=== PATIENT | male | born 1965 | race African-American/Black ===

== ENCOUNTER 2018-07-02 20:56 | Inpatient (IN) | payer BC ==
--- NOTE | 2018-07-02 21:27 | RAD ---
Radiograph chest one view: HISTORY: 53-year-old male with chest pain FINDINGS: The visualized lung harris are clear. The cardiomediastinal silhouette is normal. No pneumothorax. Th e lateral costophrenic angles are sharp. IMPRESSION: No acute cardiopulmonary findings.
[2018-07-02 21:59] LABS: #Basophils 0.1 thou/uL (0.0-0.2); #Eosinphils 0.2 thou/uL (0.0-0.7); #Lymphocytes 2.7 thou/uL (1.20-3.40); #Monocytes 0.6 thou/uL (0.11-0.59); %Basophils 0.8 % (0.0-1.0); %Eosinophils 2.2 % (0.0-10.0); %Lymphocytes 35.5 % (21.0-51.0); %Monocytes 8.3 % (0.0-10.0); %Neutrophils 53.2 % (42.0-75.0); Hemoglobin 14.1 g/dL (14.0-18.0); Mean Corpuscular HGB CONC 33.6 g/dL (32.0-36.0); Mean Corpuscular Hemoglobin 31.4 pg (27.0-31.0); Mean Corpuscular Volume 93.5 fL (78.0-98.0); Platelet Count 290 thou/uL (130-400); RBC Distribution Width 13.2 % (11.5-14.5); Red Blood Cell (RBC) Count 4.49 mill/uL (4.70-6.10); White Blood Cell (WBC) Count 7.5 thou/uL (4.8-10.8)
[2018-07-02 22:16] LABS: ALT (SGPT) 16 U/L (8-55); AST (SGOT) 16 U/L (5-34); Alkaline Phosphatase 53 U/L (40-150); Anion Gap 12 mmol/L (10-20); BUN (Urea Nitrogen) 10 mg/dL (8.4-25.7); Bilirubin, Total 0.6 mg/dL (0.2-1.2); CK (CPK) 189 U/L (30-200); Calc. Creatinine Clearance 0 mL/min (70-130); Calcium 9.2 mg/dL (7.8-10.44); Carbon Dioxide 25 mmol/L (22-29); Chloride 105 mmol/L (98-107); Estimated GFR-MDRD 75; Glucose 100 mg/dL (70-105); Lipase 13 U/L (8-78); Sodium 138 mmol/L (136-145)
[2018-07-02] MEDS ORDERED: Aspirin Chewable 81 MG TAB ONE (22:20)
[2018-07-02] MEDS ORDERED: Nitroglycerin 2% Ointment 1 INCH/1 GM Packet ONE (23:09)
[2018-07-03 01:55] LABS: CKMB 8.1 ng/mL (0-6.6)
[2018-07-03 05:02] LABS: Troponin I 0.709 ng/mL (< 0.028)
[2018-07-03 08:07] LABS: Troponin I 1.394 ng/mL (< 0.028)
[2018-07-03] MEDS ORDERED: Ondansetron PF 4 MG/2 ML Vial IVP PRN (09:17)
[2018-07-03] MEDS ORDERED: Nitroglycerin 0.4 MG TAB (25 Tab Bottle) SL PRN (09:17)
[2018-07-03] MEDS ORDERED: Acetaminophen 325 MG TAB PO PRN (09:17)
[2018-07-03] MEDS ORDERED: Bisacodyl 5 MG TAB PO PRN (09:17)
[2018-07-03] MEDS ORDERED: Enoxaparin Sodium 40 MG/0.4 ML SYRINGE SC SCH (09:30)
[2018-07-03] MEDS ORDERED: Morphine 4 MG/ML VIAL SLOW IVP PRN (10:57)
[2018-07-03] MEDS ORDERED: Enoxaparin Sodium 100 MG/ML SYRINGE SC SCH ×2 (11:00→21:00)
[2018-07-03] MEDS ORDERED: Enoxaparin Sodium 30 MG/0.3 ML SYRINGE SC SCH ×2 (11:00→21:00)
[2018-07-03] MEDS ORDERED: Enoxaparin Sodium 30 MG/0.3 ML SYRINGE ONE (12:35)
[2018-07-03] MEDS ORDERED: Enoxaparin Sodium 100 MG/ML SYRINGE ONE (12:35)
[2018-07-03 16:07] VITALS: BMI 37.5
--- NOTE | 2018-07-03 16:20 | HP ---
PRIMARY CARE PROVIDER: Tori Jordan MD CHIEF COMPLAINT: Chest pain. HISTORY OF PRESENT ILLNESS: Mr. García is a pleasant 53-year-old gentleman, who was seen at [facility] on July 03, 2018. He reports that he was on a blood pressure medication in the past, possibly amlodipine. A few days ago, he has been started on olmesartan. He also takes atorvastatin. He was sitting in his chair at work yesterday around 7:30 p.m. He leaned forward to get water from refrigerator, which was located below the desk. He started having chest pressure while he was leaning forward. The pressure continued even when he sat up. He reports that it was all over his chest, radiating down both arms, 7 to 8/10 at its worst. He got up to walk out of the building. At that time, he had a bitter taste in his mouth and felt nauseous. He walked about 25 yards and vomited several times before he reached his vehicle. He felt better when he went home. After going home, he fed his dogs and went to [employer] to get two 5-gallon water tanks filled. He carried the filled water tanks in his truck. At that time, he felt worse and started vomiting again. He continued to have the chest discomfort. He denies any shortness of breath or diaphoresis. He reports that the chest discomfort was constant and worse with exertion. It was relieved after he came to the emergency room and received medications in the emergency room. REVIEW OF SYSTEMS: All other systems reviewed and found to be negative. PAST MEDICAL HISTORY: Benign prostate hypertrophy, hypertension, and prostate cancer. SURGICAL HISTORY: Prostatectomy, transurethral resection of prostate, knee scopes, hernia repair, nasal septal surgery, and hydrocele. SOCIAL HISTORY: The patient denies tobacco use, alcohol use, or recreational drug use. FAMILY HISTORY: Significant for myocardial infarction in his paternal grandfather. ALLERGIES: PENICILLIN. CURRENT MEDICATIONS: 1. Olmesartan 5 mg daily. 2. Atorvastatin 20 mg at bedtime. PHYSICAL EXAMINATION: GENERAL: On examination, Mr. García is awake and alert, not in acute distress. VITAL SIGNS: Blood pressure is 134/89, pulse 74, respiratory rate 20, and oxygen saturation 99% on room air. He is afebrile. EYES: No scleral icterus, no conjunctival pallor. ENT: Moist mucosal membranes. No oropharyngeal erythema or exudates. NECK: Supple, nontender, trachea is midline. RESPIRATORY: Accessory muscles of breathing are not active. Chest wall movements are symmetric bilaterally. LUNGS: Clear to auscultation without wheeze, rhonchi, or crepitations. CARDIOVASCULAR: S1 and S2 are heard, regular. Peripheral pulses palpable. No carotid bruit. No pericardial rub. ABDOMEN: Soft, nontender, bowel sounds heard, no hepatomegaly, no splenomegaly. NEUROLOGIC: Cranial nerves 2 through 12 intact, deep tendon reflexes 2+. MUSCULOSKELETAL: Power is 5/5 in all 4 extremities. SKIN: No rashes or subcutaneous nodules. LYMPHATIC: No cervical lymphadenopathy. PSYCHIATRIC: Normal mood, normal affect, the patient is oriented to person, place, and time. LABORATORY DATA: Mr. García's labs and investigations were reviewed. I reviewed his electrocardiogram, which shows normal sinus rhythm, no ST changes to suggest an acute coronary syndrome. I also reviewed his chest x-ray, which does not show any pulmonary infiltrates. He has an unremarkable CBC and normal comprehensive metabolic profile. Troponin I was initially negative, but has trended up to 1.394. ASSESSMENT AND PLAN: Mr. Ricky Garza is a pleasant 53-year-old gentleman, who was seen at [facility] on July 03, 2018. His problem list includes: 1. Chest pain: Most likely secondary to wnl-QH-radiwkxzh myocardial infarction, given the trending troponins and his past medical history of hypertension and dyslipidemia. He denies any recent travel. We will order D-dimer to rule out pulmonary embolism, given the diffuse nature of his chest pain. 2. Til-UL-litbfeyqf myocardial infarction: He has already received aspirin. I will continue him on aspirin and start him on Lovenox. We will check 2D echocardiogram. We will monitor on telemetry and consult Cardiology Service for opinion and help with management. 3. Hypertension: We will continue him on olmesartan. We will monitor vital signs and titrate antihypertensives as needed. 4. Dyslipidemia: We will increase atorvastatin to 40 mg daily. Many thanks for allowing me to participate in your patient's care. Please feel free to contact me with any questions or concerns. LEVEL OF RISK: High. LEVEL OF COMPLEXITY: High. Job ID: [id number]
[2018-07-03] MEDS ORDERED: Communication Order-Pharmacy FS SCH (16:30)
[2018-07-03 17:42] LABS: Troponin I 12.712 ng/mL (< 0.028)
[2018-07-03] MEDS: Carvedilol 3.125 MG TAB PO SCH (17:43)
[2018-07-03] MEDS: Atorvastatin Calcium 40 MG TAB PO SCH (21:23)
[2018-07-03] MEDS: Nitroglycerin 2% Ointment 1 INCH/1 GM Packet TOP SCH (21:24)
[2018-07-03 21:55] LABS: Hemoglobin 13.5 g/dL (14.0-18.0); Platelet Count 290 thou/uL (130-400)
[2018-07-03 22:19] LABS: Troponin I 10.208 ng/mL (< 0.028)
--- NOTE | 2018-07-03 22:22 | CON ---
DATE OF CONSULTATION: 07/03/2018 HISTORY: Yusuf García is a 53-year-old black male who denies any previous cardiac problems. Last night approximately 7PM, he reached under his desk to a mini refrigerator to get some water. He then had onset of substernal chest pressure , but no shortness of breath or diaphoresis. The pressure continued. Ultimately, he had several bouts of vomiting. He ultimately came to the emergency room and had a blood pressure of 163/103. Topical nitrates 1 inch was placed as well as receiving 324 mg of chewable aspirin. His discomfort lasted approximately 7 p.m. until 2:30 a.m.and resolved after he received something to eat. The discomfort lasted 7 to 8 hours continuously. He had positive cardiac enzymes and was admitted for further evaluation. At the present time, he is asymptomatic. PAST MEDICAL HISTORY: Hypertension and hypercholesterolemia. MEDICATIONS: Recently changed from amlodipine to olmesartan 5 mg daily. He also takes atorvastatin probably 20 mg daily. ALLERGIES: TO PENICILLIN. SOCIAL HISTORY: He does not smoke or drink. He works for [employer]. FAMILY HISTORY: Negative for coronary artery disease in the immediate family. REVIEW OF SYSTEMS: A 10-point review of systems is unremarkable. OPERATIONS: TURP, knee arthroscopies, hernia repair, nasal septal surgery, and repair of hydrocele. PHYSICAL EXAMINATION: VITAL SIGNS: Blood pressure 135/89 and pulse 74. HEENT: PERRL. NECK: Supple. CHEST: Clear. CARDIAC: S1 and S2 normal without any S3, S4, or murmurs. Carotid upstrokes normal without bruits. ABDOMEN: Normal bowel sounds without tenderness or organomegaly. EXTREMITIES: Revealed no clubbing, cyanosis, or edema. NEUROLOGIC: Grossly intact. SKIN: Warm and dry. LABORATORY DATA: Serial EKGs were reviewed. They all showed normal sinus rhythm with probable left atrial enlargement, but no acute change. Echocardiogram revealed moderate left ventricular systolic dysfunction with ejection fraction of 30% to 35%, evidence for diastolic dysfunction, mild left atrial enlargement, mild mitral regurgitation, mild tricuspid regurgitation, and mild pulmonic regurgitation CBC is unremarkable. Sodium 138, potassium 4.0, chloride 105, carbon dioxide 25 , BUN 10, and creatinine 1.22. CK-MB 8.1, troponin I 1.394. IMPRESSION: 1. Ewt-EY-hftxbvt elevation myocardial infarction. 2. Hypertension. 3. Hypercholesterolemia. 4. Probable ischemic cardiomyopathy with ejection fraction of 30% to 35%. PLAN: Carvedilol 3.125 b.i.d. will be added to his current regimen. Fasting lipid profile will be obtained. Situation discussed with the patient. It was recommended he will undergo cardiac catheterization. Risks were discussed including , myocardial infarction, dye reaction, vascular injury, CVA, transfusion, limb loss, renal loss, etc. Also, risk of stent placement discussed including , myocardial infarction, emergent CABG, restenosis, stent thrombosis, vessel perforation, etc. He denies any history of gastrointestinal bleeding. He has never had a stroke. He does not have any upcoming surgeries, and overall, it was recommended that a drug-eluting stent will be placed if needed. Job ID: [id number] MTDD
[2018-07-04] MEDS: Carvedilol 3.125 MG TAB PO SCH ×2 (05:38→16:53)
[2018-07-04] MEDS: Nitroglycerin 2% Ointment 1 INCH/1 GM Packet TOP SCH (05:38)
[2018-07-04] MEDS: Olmesartan 5 MG TAB PO SCH (05:38)
[2018-07-04] MEDS: Aspirin 325 mg Enteric Coated Tablet PO SCH (05:39)
[2018-07-04] MEDS ORDERED: Sodium Chloride 0.9% 1,000 ML IV SCH ×2 (06:00→07:54)
[2018-07-04] MEDS ORDERED: Heparin 10,000 UNITS/1 ML VIAL ONE (06:38)
[2018-07-04 06:54] LABS: #Eosinphils 0.1 thou/uL (0.0-0.7); #Lymphocytes 1.7 thou/uL (1.20-3.40); #Neutrophils 6.2 thou/uL (1.40-6.50); %Basophils 0.5 % (0.0-1.0); %Eosinophils 1.5 % (0.0-10.0); %Lymphocytes 18.5 % (21.0-51.0); %Monocytes 11.4 % (0.0-10.0); %Neutrophils 68.1 % (42.0-75.0); Hemoglobin 13.6 g/dL (14.0-18.0); Mean Corpuscular HGB CONC 33.4 g/dL (32.0-36.0); Mean Corpuscular Hemoglobin 30.8 pg (27.0-31.0); Mean Corpuscular Volume 92.4 fL (78.0-98.0); Platelet Count 282 thou/uL (130-400); RBC Distribution Width 12.9 % (11.5-14.5); Red Blood Cell (RBC) Count 4.41 mill/uL (4.70-6.10); White Blood Cell (WBC) Count 9.1 thou/uL (4.8-10.8)
[2018-07-04] MEDS ORDERED: Fentanyl 100 MCG/2 ML VIAL ONE (07:09)
[2018-07-04] MEDS ORDERED: Midazolam HCl 2 mg/2 ml Vial ONE (07:09)
[2018-07-04 07:15] LABS: Anion Gap 9 mmol/L (10-20); BUN (Urea Nitrogen) 8 mg/dL (8.4-25.7); Calc. Creatinine Clearance 138 mL/min (70-130); Calcium 9.1 mg/dL (7.8-10.44); Carbon Dioxide 27 mmol/L (22-29); Cardiac Risk 4.2 (Less than 4.5); Chloride 106 mmol/L (98-107); Cholesterol 129 mg/dl (< 200 Desired); Estimated GFR-MDRD 80; Glucose 110 mg/dL (70-105); HDL Cholesterol 31 mg/dL (>60 Neg Risk); LDL Cholesterol, Calculated 86 mg/dL; Sodium 138 mmol/L (136-145); Triglycerides 61 mg/dL (Less than 150)
[2018-07-04] MEDS ORDERED: Nitroglycerin 100MG/250ML BOT 250 ML ONE (07:25)
[2018-07-04] MEDS ORDERED: Protamine Sulfate 50 MG/5 ML VIAL ONE (07:39)
[2018-07-04] MEDS ORDERED: Sodium Chloride 0.9% 200 ML IV PRN (07:53)
[2018-07-04] MEDS ORDERED: Acetaminophen/Codeine 30-300mg Tablet PO PRN (07:53)
[2018-07-04] MEDS ORDERED: Nitroglycerin 0.4 MG TAB (25 Tab Bottle) SL PRN (07:53)
[2018-07-04] MEDS ORDERED: Iopamidol 370 76% 100 ML VIAL ONE (08:48)
[2018-07-04] MEDS ORDERED: Iopamidol 370 76% 50 ML VIAL FS ONE (08:48)
[2018-07-04] MEDS ORDERED: Amlodipine 5 MG TAB PO SCH (10:15)
[2018-07-04] MEDS: Acetaminophen/Codeine 30-300mg Tablet PO PRN ×2 (16:23→21:26)
--- NOTE | 2018-07-04 17:40 | PDOC.PN ---
- Subjective Encounter Start Date: 07/04/18 Encounter Start Time: 09:00 Pt seen for followup re: coronary artery spasm. No chest pain at this time. - Objective Vital Signs & Weight: Vital Signs (12 hours) Temp Pulse Pulse Pulse Resp BP BP 07/04/18 16:00 98.9 F 72 20 07/04/18 12:28 86 92 128/69 07/04/18 12:00 80 18 07/04/18 10:30 64 07/04/18 08:05 98.8 F 64 18 07/04/18 08:00 64 18 126/72 BP BP BP Pulse Ox Pulse Ox Pulse Ox 07/04/18 16:00 117/64 98 07/04/18 12:28 118/70 96 98 07/04/18 12:00 142/63 H 98 07/04/18 10:30 07/04/18 08:05 126/72 97 07/04/18 08:00 Weight Weight 289 lb 3.2 oz I&O: 07/03/18 07/04/18 07/05/18 06:59 06:59 06:59 Intake Total 500 Balance 500 Result Diagrams: 07/04/18 06:25 07/04/18 06:25 Phys Exam - Physical Examination Obese HEENT: moist MMs Neck: supple Respiratory: clear to auscultation bilateral Cardiovascular: RRR Gastrointestinal: soft Neurological: moves all 4 limbs Psychiatric: normal affect Dx/Plan (1) Coronary artery spasm Code(s): I20.1 - ANGINA PECTORIS WITH DOCUMENTED SPASM Status: Acute Comment : pt has beens tarted on nitrates and amlodipine (2) Dyslipidemia Code(s): E78.5 - HYPERLIPIDEMIA, UNSPECIFIED Status: Chronic Comment: continue Lipitor (3) HTN (hypertension) Code(s): I10 - ESSENTIAL (PRIMARY) HYPERTENSION Status: Chronic Comment: controlled - Plan * . Review of Systems - Review of Systems Cardiovascular: negative: chest pain, palpitations, orthopnea, paroxysmal nocturnal dyspnea, edema, light headedness Gastrointestinal: negative: Nausea, Vomiting, Abdominal Pain, Diarrhea, Constipation, Melena, Hematochezia - Medications/Allergies Allergies/Adverse Reactions: Allergies Allergy/AdvReac Type Severity Reaction Status Date / Time Penicillins Allergy Verified 07/03/18 09:16 Medications: Current Medications Acetaminophen (Tylenol) 650 mg PO Q4H PRN PRN Reason: Headache/Fever/Mild Pain (1-3) Last Admin: 07/04/18 06:48 Dose: 650 mg Acetaminophen/Codeine Phosphate (Tylenol #3) 1 tab PO Q4H PRN PRN Reason: Mild Pain (1-3) Last Admin: 07/04/18 16:23 Dose: 1 tab Acetaminophen/Codeine Phosphate (Tylenol #3) 2 tab PO Q4H PRN PRN Reason: Moderate Pain (4-6) Amlodipine Besylate (Norvasc) 2.5 mg PO DAILY [facility] Aspirin (Ecotrin) 325 mg PO DAILY [facility] Last Admin: 07/04/18 05:39 Dose: 325 mg Atorvastatin Calcium (Lipitor) 40 mg PO HS [facility] Last Admin: 07/03/18 21:23 Dose: 40 mg Bisacodyl (Dulcolax) 10 mg PO DAILYPRN PRN PRN Reason: Constipation Carvedilol (Coreg) 3.125 mg PO BID-[facility] Last Admin: 07/04/18 16:53 Dose: 3.125 mg Sodium Chloride (Normal Saline 0.9%) 200 mls @ 0 mls/hr IV ONE PRN PRN Reason: SBP < 90 Stop: 07/07/18 07:54 Isosorbide Mononitrate (Imdur Er) 15 mg PO DAILY [facility] Morphine Sulfate (Morphine) 2 mg SLOW IVP Q5MIN PRN PRN Reason: CHEST PAIN Nitroglycerin (Nitrostat) 0.4 mg SL Q5MIN PRN PRN Reason: Chest Pain Nitroglycerin (Nitrostat) 0.4 mg SL Q5MIN PRN PRN Reason: Chest Pain Olmesartan (Benicar) 5 mg PO DAILY [facility] Last Admin: 07/04/18 05:38 Dose: 5 mg Ondansetron HCl (Zofran) 4 mg IVP Q6H PRN PRN Reason: Nausea/Vomiting Sodium Chloride (Flush - Normal Saline) 10 ml IVF Q12HR [facility] Last Admin: 07/04/18 10:32 Dose: Not Given Sodium Chloride (Flush - Normal Saline) 10 ml IVF PRN PRN PRN Reason: Saline Flush
[2018-07-04] MEDS: Atorvastatin Calcium 40 MG TAB PO SCH (20:17)
[2018-07-05 05:44] LABS: MDiff Complete? YES; Mean Corpuscular HGB CONC 32.6 g/dL (32.0-36.0); Mean Corpuscular Hemoglobin 30.6 pg (27.0-31.0); Mean Corpuscular Volume 93.8 fL (78.0-98.0); Mean Platelet Volume 7.3 fL (7.4-10.4); Platelet Count 238 thou/uL (130-400); Red Blood Cell (RBC) Count 4.26 mill/uL (4.70-6.10); White Blood Cell (WBC) Count 9.8 thou/uL (4.8-10.8)
[2018-07-05 05:45] LABS: Eosinophils 1 % (0-10); Lymphocytes 24 % (21-51); Monocytes 14 % (0-10); Neutrophil 61 % (42-75); Platelet Morphology Comment Appears Adequate
[2018-07-05 05:50] LABS: Anion Gap 10 mmol/L (10-20); BUN (Urea Nitrogen) 12 mg/dL (8.4-25.7); Calc. Creatinine Clearance 142 mL/min (70-130); Calcium 8.7 mg/dL (7.8-10.44); Carbon Dioxide 24 mmol/L (22-29); Chloride 105 mmol/L (98-107); Estimated GFR-MDRD 83; Glucose 116 mg/dL (70-105); Potassium 4.1 mmol/L (3.5-5.1); Sodium 135 mmol/L (136-145)
[2018-07-05] MEDS ORDERED: Amlodipine 5 MG TAB PO SCH (09:00)
[2018-07-05] MEDS: Carvedilol 3.125 MG TAB PO SCH (09:52)
[2018-07-05] MEDS: Olmesartan 5 MG TAB PO SCH (09:55)
[2018-07-05 12:36] VITALS: TEMP 99.4
[2018-07-05] MEDS: Acetaminophen/Codeine 30-300mg Tablet PO PRN (12:43)
[2018-07-05] MEDS: Aspirin 325 mg Enteric Coated Tablet PO SCH (13:42)
--- NOTE | 2018-07-05 13:45 | PDOC.PN ---
- Subjective Encounter Start Date: 07/05/18 Encounter Start Time: 09:30 Subjective: no chest pain or sob -: sitting in chair, family at bedside -: has been amb and eating well - Objective MAR Reviewed: Yes Vital Signs & Weight: Vital Signs (12 hours) Temp Pulse Resp BP BP BP Pulse Ox 07/05/18 12:35 99.4 F 78 14 130/70 96 07/05/18 09:52 82 139/77 07/05/18 07:31 99.2 F 82 14 139/77 97 07/05/18 03:25 98 F 79 12 125/62 97 Weight Weight 289 lb 3.2 oz I&O: 07/04/18 07/05/18 07/06/18 06:59 06:59 06:59 Intake Total 500 Balance 500 Result Diagrams: 07/05/18 04:48 07/05/18 04:48 Phys Exam - Physical Examination HEENT: PERRLA, moist MMs Neck: no JVD, supple Respiratory: no wheezing, no rales Cardiovascular: RRR, no significant murmur Gastrointestinal: soft, non-tender, positive bowel sounds Musculoskeletal: no edema, pulses present Neurological: non-focal, moves all 4 limbs Psychiatric: normal affect, A&O x 3 Dx/Plan (1) Coronary artery spasm Code(s): I20.1 - ANGINA PECTORIS WITH DOCUMENTED SPASM Status: Acute Comment : is on nitrates and amlodipine (2) Cardiomyopathy Code(s): I42.9 - CARDIOMYOPATHY, UNSPECIFIED Status: Acute Qualifiers: Cardiomyopathy type: unspecified Qualified Code(s): I42.9 - Cardiomyopathy , unspecified Comment: ef of 30% (3) Dyslipidemia Code(s): E78.5 - HYPERLIPIDEMIA, UNSPECIFIED Status: Chronic Comment: continue Lipitor (4) HTN (hypertension) Code(s): I10 - ESSENTIAL (PRIMARY) HYPERTENSION Status: Chronic Qualifiers: Hypertension type: essential hypertension Qualified Code(s): I10 - Essential (primary) hypertension Comment: controlled (5) Obesity (BMI 30-39.9) Code(s): E66.9 - OBESITY, UNSPECIFIED Status: Chronic - Plan hemostable -: may dc home -: d/w all findings and lab reports with patient at bedside -: one month of aspirin and to discontinue after that -: medications are opitmized by cardiology * . Review of Systems - Medications/Allergies Allergies/Adverse Reactions: Allergies Allergy/AdvReac Type Severity Reaction Status Date / Time Penicillins Allergy Verified 07/03/18 09:16 Medications: Current Medications Acetaminophen (Tylenol) 650 mg PO Q4H PRN PRN Reason: Headache/Fever/Mild Pain (1-3) Last Admin: 07/04/18 06:48 Dose: 650 mg Acetaminophen/Codeine Phosphate (Tylenol #3) 1 tab PO Q4H PRN PRN Reason: Mild Pain (1-3) Last Admin: 07/05/18 12:43 Dose: 1 tab Acetaminophen/Codeine Phosphate (Tylenol #3) 2 tab PO Q4H PRN PRN Reason: Moderate Pain (4-6) Amlodipine Besylate (Norvasc) 2.5 mg PO DAILY [facility] Last Admin: 07/05/18 09:52 Dose: 2.5 mg Aspirin (Ecotrin) 325 mg PO DAILY [facility] Last Admin: 07/05/18 13:42 Dose: 325 mg Atorvastatin Calcium (Lipitor) 40 mg PO HS [facility] Last Admin: 07/04/18 20:17 Dose: 40 mg Bisacodyl (Dulcolax) 10 mg PO DAILYPRN PRN PRN Reason: Constipation Carvedilol (Coreg) 3.125 mg PO BID-[facility] Last Admin: 07/05/18 09:52 Dose: 3.125 mg Sodium Chloride (Normal Saline 0.9%) 200 mls @ 0 mls/hr IV ONE PRN PRN Reason: SBP < 90 Stop: 07/07/18 07:54 Isosorbide Mononitrate (Imdur Er) 15 mg PO DAILY [facility] Last Admin: 07/05/18 09:53 Dose: 15 mg Morphine Sulfate (Morphine) 2 mg SLOW IVP Q5MIN PRN PRN Reason: CHEST PAIN Nitroglycerin (Nitrostat) 0.4 mg SL Q5MIN PRN PRN Reason: Chest Pain Nitroglycerin (Nitrostat) 0.4 mg SL Q5MIN PRN PRN Reason: Chest Pain Olmesartan (Benicar) 5 mg PO DAILY [facility] Last Admin: 07/05/18 09:55 Dose: 5 mg Ondansetron HCl (Zofran) 4 mg IVP Q6H PRN PRN Reason: Nausea/Vomiting Sodium Chloride (Flush - Normal Saline) 10 ml IVF Q12HR [facility] Last Admin: 07/05/18 09:56 Dose: 10 ml Sodium Chloride (Flush - Normal Saline) 10 ml IVF PRN PRN PRN Reason: Saline Flush
[2018-07-05 14:21] VITALS: BP 135/67
--- NOTE | 2018-07-05 15:58 | PQF ---
JOSE ANGEL GRAVES,AZUL GLYNN, VITOR ALMONTE MD [id number] [facility]-285 [id number] CLINICAL DOCUMENTATION IMPROVEMENT CLARIFICATION FORM: ICD-10 Updated PLEASE DO AN ADDENDUM TO THE PROGRESS NOTE WITH ANY DOCUMENTATION UPDATES OR ADDITIONS AND CARRY THROUGH TO DC SUMMARY. THANK YOU. DATE: 07/05/2018 ATTN:DR. Lee GLYNN Please exercise your independent, professional judgment in responding to the clarification form. Clinical indicators are provided on the bottom of this form for your review. Please check appropriate box(s): [ ] NSTEMI (NE type I) [x ] NSTEMI due to Coronary Artery Spasm (AMI Type II) [ ] Other diagnosis [ ] Unable to determine In addition, please specify: Present on Admission (POA): [ x ] Yes [ ] No [ ] Unable to determine CLINICAL INDICATORS - SIGNS / SYMPTOMS / LABS 07/03 TROPONIN I 1.394 12.712 10.208 07/03 H & P (SUZY) ASSESS,EMT AND PLAN: 1. CHEST PAIN, MOST LIKELY SECONDARY TO NON ST ELEVATION MYOCARDIAL INFARCTION, GIVEN THE TRENDING TROPONIN, AND HIS PAST MEDICAL HISTORY OF HYPERTENSION AND DYSLIPIDEMIA. 07/03 CONSULT (LUCIANA) IMPRESSION 1). RBC-[id number]-[id number] ELEVATION MYOCARDIAL INFARCTION 07/04 PN (SUZY) RISK: HX OF HYPERTENSION HX OF DYSLIPIDEMIA OBESITY (BMI 37.1) TREATMENT: CARDIOLOGY CONSULT CARDIAC CATHETER PROCEDURE (07/03) THANK YOU! ZACH (This form is maintained as a part of the permanent medical record) 2014 [employer]. All Rights Reserved [email or web address] [phone] MTDD
--- NOTE | 2018-07-07 18:14 | DIS ---
DATE OF ADMISSION: 07/03/2018 DATE OF DISCHARGE: 07/05/2018 PRIMARY DISCHARGE DIAGNOSES: 1. Cardiomyopathy with ejection fraction of 30%. 2. Coronary artery spasm. 3. Type 2 acute myocardial infarction due to coronary artery spasm. SECONDARY DISCHARGE DIAGNOSES: 1. Hypertension. 2. Dyslipidemia. 3. Obesity. PROCEDURES DONE DURING HOSPITALIZATION: Chest x-ray done on the day of admission showed no acute cardiopulmonary abnormality. Coronary angiogram done by Dr. Graham showed mid LAD coronary artery spasm relieved with intracoronary nitroglycerin, moderately impaired LV function. Echo with 2D Doppler showed EF of 30% to 35%. There was diastolic dysfunction. LABORATORY DATA: H and H of 13 and 40, platelet count 238. Troponin was elevated and peaking up to 12.71. CK-MB was 8.1. Total cholesterol 129, triglycerides 61, LDL 86, HDL 31, BUN and creatinine on the day of discharge are 12 and 1.1. INPATIENT CONSULT: Dr. Graham for Cardiology. DISCHARGE MEDICATIONS: 1. Olmesartan 5 mg p.o. daily. 2. Norvasc 2.5 mg p.o. daily. 3. Aspirin 325 mg p.o. daily for a total of 30 days and to discontinue after that. 4. Lipitor 40 mg p.o. q.h.s. 5. Coreg 3.125 mg p.o. twice daily. 6. Imdur 15 mg p.o. daily. 7. Nitroglycerin sublingual p.r.n. ALLERGIES: ALLERGIC TO PENICILLIN. DISCHARGE PLAN: The patient to follow up with Dr. Graham as advised and primary care physician in 1 week. BRIEF COURSE DURING HOSPITALIZATION: The patient initially came to ER on the first with complaints of chest pain. His initial troponin was indeterminate, but soon got elevated. He has had consultation with Dr. Graham for Cardiology. The patient had a coronary angiogram done, which showed mid LAD coronary artery spasm which was relieved with intracoronary nitroglycerin. His ejection fraction was 30% on the echo. The patient's medications were optimized. He has been chest pain-free for the last 24 to 36 hours post angiogram. The patient has had some headache due to nitroglycerin, which is resolving. He needs to follow up with Dr. Graham as advised. He was counseled with regard to medication compliance. He is ambulating and eating well prior to discharge. Please see a [id number] documentation for the day of discharge on [employer]. Job ID: [id number]
== END 2018-07-05 16:34 | disposition home or self-care (01) | DRG 281 ==
LOC: ERS 20:56 → ERHOLD 07-03 01:41 → OBSVTOIN 07-03 01:41 → 2NO 07-03 16:00
PROVIDERS: ADMIT Hospitalist; ATTEND Hospitalist
PROC: 4A023N7 Measurement of Cardiac Sampling and Pressure, Left Heart, Percutaneous Approach (ICD-10-PCS; principal; 2018-07-03)
PROC: B2151ZZ Fluoroscopy of Left Heart using Low Osmolar Contrast (ICD-10-PCS; 2018-07-03)
PROC: B2111ZZ Fluoroscopy of Multiple Coronary Arteries using Low Osmolar Contrast (ICD-10-PCS; 2018-07-03)
DX: I21.A1 Myocardial infarction type 2 (principal); I42.9 Cardiomyopathy, unspecified; I20.1 Angina pectoris with documented spasm; I10 Essential (primary) hypertension; E78.5 Hyperlipidemia, unspecified; E66.9 Obesity, unspecified; Z79.899 Other long term (current) drug therapy; Z79.82 Long term (current) use of aspirin; Z88.0 Allergy status to penicillin
CPT/HCPCS: 36415; 71045; 80048; 80053; 80061; 82550; 82553; 82565; 83690; 84484; 85014; 85018; 85025; 85049; 85347; 85379; 93005; 93306; 93458; 93798; 94760; 99152; 99153; C1769; J1644; J1650; J2250; J2720; J3010; Q9967